=== PATIENT | female | born 1975 | race Caucasian/White ===

== ENCOUNTER → 2019-04-06 10:12 | Outpatient (BNVA) | payer OTHER, SELFPAY | PROVIDERS: Family Provider Family Medicine; PCP Nurse Practitioner; Visit Provider Otolaryngology | DX: J34.2 Deviated nasal septum (principal); J34.3 Hypertrophy of nasal turbinates; J30.9 Allergic rhinitis, unspecified; R09.82 Postnasal drip; R53.83 Other fatigue; K21.9 Gastro-esophageal reflux disease without esophagitis; R05 Cough; J32.9 Chronic sinusitis, unspecified | CPT/HCPCS: 96372; 99214; J3301 ==

== ENCOUNTER → 2023-04-10 07:49 | Outpatient (BNVA) | payer BC, SELFPAY | PROVIDERS: Family Provider Family Medicine; PCP Nurse Practitioner; Visit Provider Family Medicine Adult Medicine | DX: J02.9 Acute pharyngitis, unspecified (principal) | CPT/HCPCS: 87880 ==